=== PATIENT | female | born 1990 | race Caucasian/White ===

== ENCOUNTER 2017-04-29 13:52 | Emergency (ER) | payer BC ==
[2017-04-29] MEDS ORDERED: Ondansetron HCl/PF 4 MG/2 ML Vial ONE (14:12)
[2017-04-29 14:37] LABS: #Eosinphils 0.1 thou/uL (0.0-0.7); #Lymphocytes 2.3 thou/uL (1.20-3.40); #Monocytes 0.4 thou/uL (0.11-0.59); #Neutrophils 3.7 thou/uL (1.40-6.50); %Basophils 0.7 % (0.0-1.0); %Eosinophils 1.3 % (0.0-10.0); %Lymphocytes 35.2 % (21.0-51.0); %Neutrophils 56.9 % (42.0-75.0); Hemoglobin 12.9 g/dL (12.0-16.0); Mean Corpuscular HGB CONC 33.8 g/dL (32.0-36.0); Mean Corpuscular Hemoglobin 33.4 pg (27.0-31.0); Mean Corpuscular Volume 98.9 fl (81.0-99.0); Mean Platelet Volume 8.9 fL (7.4-10.4); Platelet Count 162 thou/uL (130-400); Red Blood Cell (RBC) Count 3.87 mill/uL (4.20-5.40); White Blood Cell (WBC) Count 6.5 thou/uL (4.8-10.8)
[2017-04-29 14:52] LABS: BHCG - Serum Negative (NEGATIVE); Pregs Control Background? CLEAR/WHITE (CLR/WHITE); Pregs Control Bar Appear? YES (CONTROL BAR)
--- NOTE | 2017-04-29 14:52 | RAD ---
PORTABLE CHEST 1 VIEW: DATE: 04/29/17. TIME: 2:34 p.m. HISTORY: Nausea, vomiting, syncope. FINDINGS: The cardiomediastinum is normal. The lungs are expanded and clear. Bony thorax is unremarkable. IMPRESSION: No radiographic evidence of acute cardiopulmonary process. POS: [facility]
[2017-04-29 14:53] LABS: ALT (SGPT) 8 U/L (8-55); AST (SGOT) 14 U/L (5-34); Albumin 3.9 g/dL (3.5-5.0); Alkaline Phosphatase 24 U/L (40-150); Anion Gap 12 mmol/L (10-20); BUN (Urea Nitrogen) 11 mg/dL (7.0-18.7); Bilirubin, Total 0.4 mg/dL (0.2-1.2); Calc. Creatinine Clearance 0 mL/min (70-130); Calcium 8.9 mg/dL (7.8-10.44); Carbon Dioxide 23 mmol/L (22-29); Chloride 107 mmol/L (98-107); Estimated GFR-MDRD Greater than 90; Globulin 2.7 g/dL (2.4-3.5); Glucose 88 mg/dL (70-105); Magnesium 1.9 mg/dL (1.6-2.6); Potassium 3.5 mmol/L (3.5-5.1); Protein, Total 6.6 g/dL (6.0-8.3); Sodium 138 mmol/L (136-145)
[2017-04-29 14:55] LABS: CKMB 0.4 ng/mL (0-6.6); Troponin I Less than 0.010 ng/mL (< 0.028)
[2017-04-29] MEDS ORDERED: Acetaminophen 500 MG TAB ONE ×2 (15:43→15:46)
--- NOTE | 2017-04-29 16:53 | CT ---
CT OF HEAD NONCONTRAST 04/29/17 CLINICAL HISTORY: Headache. FINDINGS: There is no evidence of acute intracranial hemorrhage, mass effect, midline shift or ventriculomegaly . Imaged paranasal sinuses are clear. IMPRESSION: No acute intracranial hemorrhage or mass effect. POS: [facility]
== END 2017-04-29 17:00 | disposition home or self-care (01) ==
LOC: ERS 13:52
DX: S06.0X0A Concussion without loss of consciousness, initial encounter (principal); R55 Syncope and collapse; G43.909 Migraine, unspecified, not intractable, without status migrainosus; Z79.899 Other long term (current) drug therapy
CPT/HCPCS: 36415; 70450; 71045; 80053; 82553; 83735; 84484; 84703; 85025; 85379; 93005; J2405